=== PATIENT | male | born 2000 | race Caucasian/White ===

== ENCOUNTER 2019-05-28 18:08 | Emergency (ER) | payer MEDICAID ==
[~2019-05-28] VITALS: Ht 172.7 cm; Wt 91.0 kg
[2019-05-28] MEDS ORDERED: CYCL5TAB PO (18:29)
[2019-05-28] MEDS ORDERED: KETOROLAC 30MG/ML VIAL IM STA (22:43)
[2019-05-29 01:50] VITALS: BP 123/72
== END 2019-05-29 02:20 | disposition home or self-care (01) ==
LOC: ER 18:08
DX: S39.012A Strain of muscle, fascia and tendon of lower back, initial encounter (principal); R05 Cough; X50.0XXA Overexertion from strenuous movement or load, initial encounter; Y93.F2 Activity, caregiving, lifting; Y92.89 Other specified places as the place of occurrence of the external cause; Y99.8 Other external cause status
CPT/HCPCS: 71045; 72131; 96372; 99284; J1885

== ENCOUNTER 2019-05-31 14:27 | Inpatient (IN) | payer MEDICAID ==
[~2019-05-31] VITALS: Ht 172.7 cm; Wt 87.5 kg
[~2019-05-31 14:27] MED LIST: CYCL5TAB PO
[2019-05-31] MEDS ORDERED: IBUP-516 PO (15:04)
[2019-06-01] MEDS ORDERED: SODIUM CHLORIDE 0.9% 1000ML BAG (SEPSIS BOLUS) IV ONE (03:45)
[2019-06-01] MEDS ORDERED: LEVOFLOXACIN 750MG PREMIX 150 ML IV ONE (04:00)
[2019-06-01 04:49] LABS: BASOPHILS % 0.1 % (0.0-2.0); EOSINOPHILS % 0.5 % (0.0-5.0); HEMATOCRIT. 36.6 % (42.0-52.0); HEMOGLOBIN. 12.3 g/dL (14.0-18.0); LYMPHOCYTES % 18.4 % (20.0-50.0); MEAN CORPUSCULAR HEMOGLOBIN 27.8 pg (28.0-32.0); MEAN CORPUSCULAR VOLUME 82.6 fL (80.0-94.0); MEAN PLATELET VOLUME 8.1 fl (7.4-10.4); PLATELET 293 x1000/uL (130-400); RED BLOOD CELL COUNT 4.43 mill/uL (4.7-6.1); RED CELL DISTRIBUTION WIDTH 13.4 % (11.6-14.6)
[2019-06-01 04:53] LABS: PROTHROMBIN TIME 10.8 sec (9.6-11.0)
[2019-06-01 04:56] LABS: CHLORIDE 105 mEq/L (98-107)
[2019-06-01 10:20] LABS: CLARITY URINE CLEAR (CLEAR); COLOR URINE YELLOW (YELLOW); KETONES URINE NEGATIVE (NEGATIVE); LEUKOCYTE ESTERASE URINE NEGATIVE (NEGATIVE); NITRITE URINE NEGATIVE (NEGATIVE); OCCULT BLOOD URINE NEGATIVE (NEGATIVE); PH URINE 6.5 (4.5-8.0); PROTEIN URINE NEGATIVE (NEGATIVE); SPECIFIC GRAVITY URINE 1.021 (1.005-1.030)
[2019-06-01 13:40] VITALS: BP 152/82
[2019-06-01] MEDS ORDERED: IBUP-2029 MT (14:10)
[2019-06-01] MEDS ORDERED: METH-612 MT (14:11)
[2019-06-01] MEDS ORDERED: IBUPROFEN 600MG TABLET PO PRN (14:45)
[2019-06-01] MEDS ORDERED: ONDANSETRON HCL 4MG/2ML INJ IV PRN (15:45)
[2019-06-01] MEDS ORDERED: CLONIDINE 0.1MG TABLET PO PRN (15:45)
[2019-06-01 16:00] VITALS: BP 135/71
[2019-06-01] MEDS ORDERED: DIATR MEGLU/DIATRIZOATE SOLN 30ML PO SCH (17:45)
[2019-06-01] MEDS ORDERED: RACEPINEPHRINE 2.25% 0.5ML NEB VIAL HHN PRN (17:45)
[2019-06-01] MEDS ORDERED: IPRATROPIUM/ALBUTEROL 0.5-3(2.5)MG/3ML NEB HHN PRN (18:00)
[2019-06-01 20:00] VITALS: BP 143/81
[2019-06-01] MEDS: GUAIFENESIN 600MG ER TABLET PO SCH (21:15)
[2019-06-01] MEDS: METHOCARBAMOL 750MG TABLET PO SCH (21:17)
[2019-06-01] MEDS: AMLODIPINE 5MG TABLET PO SCH (21:17)
[2019-06-02] VITALS: BP 101/54
[2019-06-02 04:00] VITALS: BP 125/73
[2019-06-02] MEDS: METHOCARBAMOL 750MG TABLET PO SCH ×3 (06:52→21:11)
[2019-06-02 07:41] LABS: BASOPHILS % 0.2 % (0.0-2.0); EOSINOPHILS % 0.4 % (0.0-5.0); HEMATOCRIT. 37.6 % (42.0-52.0); HEMOGLOBIN. 12.5 g/dL (14.0-18.0); LYMPHOCYTES % 15.2 % (20.0-50.0); MEAN CORPUSCULAR HEMOGLOBIN 27.8 pg (28.0-32.0); MEAN CORPUSCULAR VOLUME 83.5 fL (80.0-94.0); MEAN PLATELET VOLUME 8.5 fl (7.4-10.4); MONOCYTES % 6.7 % (2.0-8.0); NEUTROPHILS % 77.5 % (40.0-76.0); PLATELET 317 x1000/uL (130-400); RED BLOOD CELL COUNT 4.51 mill/uL (4.7-6.1); RED CELL DISTRIBUTION WIDTH 13.3 % (11.6-14.6)
[2019-06-02 07:56] LABS: CHLORIDE 106 mEq/L (98-107)
[2019-06-02 08:00] VITALS: BP 122/69
[2019-06-02 08:01] LABS: CARCINO EMBRYONIC ANTIGEN 2.8 ng/ml
[2019-06-02 08:13] LABS: HEPATITIS B SURFACE ANTIGEN NEGATIVE
[2019-06-02] MEDS: AMLODIPINE 5MG TABLET PO SCH ×2 (08:33→21:07)
[2019-06-02] MEDS: MORPHINE SULFATE 2 MG/ML CPJ (NOT FOR IM USE) IV PRN ×2 (08:33→15:01)
[2019-06-02] MEDS: GUAIFENESIN 600MG ER TABLET PO SCH ×2 (08:33→21:07)
[2019-06-02 08:40] LABS: HEPATITIS A AB IGM NEGATIVE (NEGATIVE)
[2019-06-02] MEDS ORDERED: DIATR MEGLU/DIATRIZOATE SOLN 30ML PO SCH (09:30)
[2019-06-02] MEDS: LEVOFLOXACIN 500MG PREMIX 100 ML IV SCH (10:32)
[2019-06-02 12:00] VITALS: BP 120/57
[2019-06-02 16:00] VITALS: BP 115/48
[2019-06-02 17:32] LABS: T4 FREE 1.36 ng/dL (0.76-1.46)
[2019-06-02 20:00] VITALS: BP 144/85
[2019-06-03] VITALS: BP 121/69
[2019-06-03 04:00] VITALS: BP 127/72
[2019-06-03] MEDS: METHOCARBAMOL 750MG TABLET PO SCH ×3 (05:53→21:33)
[2019-06-03 08:00] VITALS: BP 116/71
[2019-06-03] MEDS: AMLODIPINE 5MG TABLET PO SCH ×2 (09:00→21:34)
[2019-06-03] MEDS: GUAIFENESIN 600MG ER TABLET PO SCH ×2 (09:00→21:33)
[2019-06-03] MEDS: LEVOFLOXACIN 500MG PREMIX 100 ML IV SCH (09:01)
[2019-06-03] MEDS: MORPHINE SULFATE 2 MG/ML CPJ (NOT FOR IM USE) IV PRN ×2 (09:33→18:33)
[2019-06-03 12:00] VITALS: BP 116/62
[2019-06-03] MEDS: IPRATROPIUM/ALBUTEROL 0.5-3(2.5)MG/3ML NEB HHN SCH (12:05)
[2019-06-03 16:00] VITALS: BP 120/72
[2019-06-03 20:00] VITALS: BP 123/75
[2019-06-04] VITALS: BP 134/73
[2019-06-04] MEDS: MORPHINE SULFATE 2 MG/ML CPJ (NOT FOR IM USE) IV PRN ×4 (01:37→21:10)
[2019-06-04 04:00] VITALS: BP 109/51
[2019-06-04] MEDS: METHOCARBAMOL 750MG TABLET PO SCH ×3 (05:16→22:02)
[2019-06-04 08:03] VITALS: BP 122/65
[2019-06-04] MEDS: GUAIFENESIN 600MG ER TABLET PO SCH ×2 (09:00→22:02)
[2019-06-04] MEDS: AMLODIPINE 5MG TABLET PO SCH ×2 (09:00→22:02)
[2019-06-04] MEDS: LEVOFLOXACIN 500MG PREMIX 100 ML IV SCH (09:00)
[2019-06-04] MEDS: IPRATROPIUM/ALBUTEROL 0.5-3(2.5)MG/3ML NEB HHN SCH ×4 (09:27→21:20)
[2019-06-04] MEDS: HYDROCODONE/ACETAMINOPHEN 5/325MG TABLET PO PRN ×2 (10:56→12:04)
[2019-06-04 11:57] VITALS: BP 141/79
[2019-06-04 15:57] VITALS: BP 117/66
[2019-06-04 20:00] VITALS: BP 126/79
[2019-06-05] VITALS: BP 119/73
[2019-06-05] MEDS: IPRATROPIUM/ALBUTEROL 0.5-3(2.5)MG/3ML NEB HHN SCH ×4 (02:20→20:22)
[2019-06-05 04:00] VITALS: BP 119/69
[2019-06-05] MEDS: METHOCARBAMOL 750MG TABLET PO SCH ×3 (05:52→21:55)
[2019-06-05 08:00] VITALS: BP 119/69
[2019-06-05 08:07] LABS: CANCER ANTIGEN 125 8.7 U/mL (Not Estab.); HIV SCREEN 4G Non Reactive (Non Reactive)
[2019-06-05] MEDS: GUAIFENESIN 600MG ER TABLET PO SCH ×2 (10:59→21:53)
[2019-06-05] MEDS: AMLODIPINE 5MG TABLET PO SCH ×2 (10:59→21:53)
[2019-06-05] MEDS: LEVOFLOXACIN 500MG PREMIX 100 ML IV SCH (11:02)
[2019-06-05] MEDS: MORPHINE SULFATE 2 MG/ML CPJ (NOT FOR IM USE) IV PRN ×2 (11:27→17:00)
[2019-06-05 12:00] VITALS: BP 118/68
[2019-06-05 16:00] VITALS: BP 119/73
[2019-06-05 20:00] VITALS: BP 134/75
[2019-06-06] VITALS: BP 122/68
[2019-06-06] MEDS: HYDROCODONE/ACETAMINOPHEN 5/325MG TABLET PO PRN ×2 (01:29→16:18)
[2019-06-06] MEDS: IPRATROPIUM/ALBUTEROL 0.5-3(2.5)MG/3ML NEB HHN SCH ×3 (02:45→15:06)
[2019-06-06 04:00] VITALS: BP 117/65
[2019-06-06] MEDS: METHOCARBAMOL 750MG TABLET PO SCH ×3 (06:30→22:18)
[2019-06-06 08:00] VITALS: BP 119/68
[2019-06-06] MEDS: GUAIFENESIN 600MG ER TABLET PO SCH ×2 (09:09→22:18)
[2019-06-06] MEDS: AMLODIPINE 5MG TABLET PO SCH ×2 (09:09→22:19)
[2019-06-06] MEDS: LEVOFLOXACIN 500MG PREMIX 100 ML IV SCH (09:13)
[2019-06-06 12:00] VITALS: BP 112/58
[2019-06-06 20:00] VITALS: BP 130/77
[2019-06-07] VITALS: BP 128/80
[2019-06-07] MEDS: HYDROCODONE/ACETAMINOPHEN 5/325MG TABLET PO PRN ×2 (00:02→15:30)
[2019-06-07 04:00] VITALS: BP 114/60
[2019-06-07] MEDS: METHOCARBAMOL 750MG TABLET PO SCH ×3 (06:00→21:06)
[2019-06-07 08:21] VITALS: BP 107/51
[2019-06-07] MEDS: LEVOFLOXACIN 500MG PREMIX 100 ML IV SCH (08:51)
[2019-06-07] MEDS: GUAIFENESIN 600MG ER TABLET PO SCH (08:51)
[2019-06-07] MEDS: AMLODIPINE 5MG TABLET PO SCH ×2 (08:51→20:48)
[2019-06-07] MEDS ORDERED: MIDAZOLAM HCL 2 MG/2 ML VIAL ONE (11:23)
[2019-06-07] MEDS ORDERED: FENTANYL CITRATE/PF 50MCG/ML 2ML VIAL ONE (11:23)
[2019-06-07] MEDS ORDERED: CEFAZOLIN SODIUM 1000MG/VIAL ONE (11:24)
[2019-06-07] MEDS ORDERED: SODIUM CHLORIDE 0.9% 10ML VIAL ONE (11:24)
[2019-06-07] MEDS ORDERED: LIDOCAINE HCL/PF 1% 10 MG/ML 5ML VIAL ONE (11:24)
[2019-06-07] MEDS ORDERED: PROPOFOL 200MG/20ML VIAL IV ONE (11:24)
[2019-06-07] MEDS ORDERED: ROCURONIUM BROMIDE 10MG/ML VIAL 5ML IV ONE (11:29)
[2019-06-07] MEDS ORDERED: SUCCINYLCHOLINE CHLORIDE 200MG/10ML IV ONE (11:29)
[2019-06-07 12:00] VITALS: BP 127/73
[2019-06-07] MEDS ORDERED: ONDANSETRON HCL 4MG/2ML INJ ONE ×2 (12:45→12:47)
[2019-06-07] MEDS ORDERED: DEXAMETHASONE 4MG/ML 1ML VIAL ONE (12:45)
[2019-06-07] MEDS ORDERED: BUPIVACAINE HCL/EPINEPHRINE/PF 0.5%/0.0005 10ML ONE (13:03)
[2019-06-07] MEDS ORDERED: GLYCOPYRROLATE 0.2 MG/ML 2ML VIAL ONE (13:24)
[2019-06-07] MEDS ORDERED: NEOSTIGMINE METHYLSULFATE 1MG/ML 10 ML VIAL ONE (13:24)
[2019-06-07] MEDS ORDERED: HYDROMORPHONE HCL/PF 2MG/ML CPJ IV PRN (14:00)
[2019-06-07 16:00] VITALS: BP 107/56
[2019-06-07 16:51] LABS: HEMATOCRIT. 37.5 % (42.0-52.0); HEMOGLOBIN. 12.5 g/dL (14.0-18.0); MEAN CORPUSCULAR HEMOGLOBIN 27.5 pg (28.0-32.0); MEAN CORPUSCULAR VOLUME 82.8 fL (80.0-94.0); MEAN PLATELET VOLUME 8.5 fl (7.4-10.4); PLATELET 328 x1000/uL (130-400); RED BLOOD CELL COUNT 4.53 mill/uL (4.7-6.1); RED CELL DISTRIBUTION WIDTH 13.3 % (11.6-14.6)
[2019-06-07 17:00] LABS: CHLORIDE 103 mEq/L (98-107)
[2019-06-07 17:21] LABS: PLATELET ESTIMATE NORMAL
[2019-06-07 20:00] VITALS: BP 108/53
[2019-06-08] VITALS: BP 131/64
[2019-06-08] MEDS: HYDROCODONE/ACETAMINOPHEN 5/325MG TABLET PO PRN ×2 (00:52→10:32)
[2019-06-08 04:00] VITALS: BP 104/46
[2019-06-08] MEDS: METHOCARBAMOL 750MG TABLET PO SCH ×2 (05:52→13:56)
[2019-06-08 08:32] VITALS: BP 151/79
[2019-06-08 08:34] VITALS: BP 111/40
[2019-06-08] MEDS: LEVOFLOXACIN 500MG PREMIX 100 ML IV SCH (08:46)
[2019-06-08] MEDS: AMLODIPINE 5MG TABLET PO SCH (08:47)
[2019-06-08 11:54] VITALS: BP 113/63
[2019-06-08 12:49] VITALS: BP 115/55
== END 2019-06-08 14:10 | disposition home or self-care (01) | DRG 483 ==
LOC: ER 14:27 → 6WST 06-01 06:24 → ENRESERV 06-01 13:04
PROVIDERS: ADMIT Hospitalist; ATTEND Hospitalist
PROC: 0VTB0ZZ Resection of Left Testis, Open Approach (ICD-10-PCS; principal; 2019-06-07)
DX: C62.92 Malignant neoplasm of left testis, unspecified whether descended or undescended (principal); J18.9 Pneumonia, unspecified organism; C78.02 Secondary malignant neoplasm of left lung; E87.1 Hypo-osmolality and hyponatremia; D72.829 Elevated white blood cell count, unspecified; Z80.9 Family history of malignant neoplasm, unspecified; Z79.899 Other long term (current) drug therapy
CPT/HCPCS: 36415; 71045; 71250; 74176; 76536; 76870; 80048; 80053; 81003; 82105; 82378; 83605; 83615; 84145; 84439; 84443; 84481; 84484; 85025; 86304; 86705; 86709; 86803; 87070; 87116; 87340; 87389; 88309; 93976; 94640; 96365; 99285; J0171; J0330; J0690; J1100; J1956; J2250; J2270; J2405; J2704; J2710; J3010; J3490; J7030; J7040; Q9963